=== PATIENT | female | born 1995 | race Caucasian/White ===

== ENCOUNTER 2021-07-06 03:11 | Inpatient (IN) ==
[2021-07-06 04:41] LABS: Appearance Urine Clear (Clear); Bilirubin Urine Negative (Negative); Blood Urine Negative (Negative); Color Urine Yellow; Glucose Urine UA Negative (Negative); Ketones Urine Negative (Negative); Leukocyte Esterase Urine Negative (Negative); Nitrite Urine Negative (Negative); Protein Urine Negative (Negative); Specific Gravity Urine 1.021 (1.000-1.030); Urobilinogen Urine Negative (Negative); pH Urine 5.5 (4.5-7.5)
[2021-07-06 05:03] LABS: Amphetamines+Metham, Urine Neg (Neg); Barbiturates, Urine Neg (Neg); Benzodiazepine, Urine Neg (Neg); Cocaine, Urine Neg (Neg); MDMA (Ecstacy), Urine Neg (Neg); Methadone, Urine Neg (Neg); Opiate, Urine Neg (Neg); Phencyclidine, Urine Neg (Neg)
[2021-07-06 05:05] LABS: Basophils # (auto) 0.03 K/uL (0-0.2); Basophils % (auto) 0.3 %; Eosinophils # (auto) 0.15 K/uL (0-0.5); Eosinophils % (auto) 1.6 %; Hematocrit (blood only) 38.4 % (37-47); Hemoglobin 12.8 g/dL (12.0-16.0); Immature Granulocytes # (auto) 0.01 K/uL (0.00-0.02); Immature Granulocytes % (auto) 0.1 %; Lymphocytes # (auto) 2.67 K/uL (1.2-3.4); Mean Corpuscular Hemoglobin 30.5 pg (25-34); Mean Corpuscular Hgb Conc 33.3 g/dL (32-36); Mean Corpuscular Volume 91.6 fL (80-100); Mean Platelet Volume 9.4 fL (7.4-10.4); Monocytes # (auto) 0.74 K/uL (0.11-0.59); Monocytes % (auto) 7.8 %; Neutrophils # (auto) 5.94 K/uL (1.4-6.5); Neutrophils % (auto) 62.2 %; Platelet Count 271 K/uL (130-400); RDW Coefficient of Variation 12.2 % (11.5-14.5); RDW Standard Deviation 40.9 fL (36.4-46.3); Red Blood Count 4.19 M/uL (4.2-5.4); White Blood Count 9.54 K/uL (4.8-10.8)
[2021-07-06 05:29] LABS: Alanine Aminotransferase 27 U/L (12-78); Albumin Level 3.3 gm/dl (3.4-5.0); Aspartate Aminotransferase 24 U/L (15-37); BUN Creatinine Ratio 11.9 (10-20); Blood Urea Nitrogen 9 mg/dl (7-18); Calcium 8.8 mg/dl (8.5-10.1); Carbon Dioxide 27 mmol/L (21-32); Chloride 109 mmol/L (98-107); Creatinine Clr Calc Pharmacy 90.7 ml/min; Est GFR (African American) 128.4 ml/min; Est GFR (Non-African American) 110.8 ml/min; Glucose 109 mg/dl (70-99); Magnesium 2.1 mg/dl (1.8-2.4); Potassium 3.4 mmol/L (3.5-5.1); Sodium 139 mmol/L (136-145)
[2021-07-06 05:40] LABS: Albumin Globulin Ratio 1.1 (0.9-2); Alkaline Phosphatase 66 U/L (45-117); Total Protein 6.3 gm/dl (6.4-8.2); Troponin I < 0.015 ng/ml (0-0.045)
[2021-07-06 06:34] LABS: Pregnancy Test, Serum Negative (Negative)
[2021-07-06 07:02] LABS: Creatine Kinase 181 U/L (26-192)
--- NOTE | 2021-07-06 07:37 | CT Scan Report ---
CT OF THE HEAD WITHOUT CONTRAST CLINICAL HISTORY: Altered mental status. COMPARISON STUDY: No previous studies for comparison. CT DOSE: 537.48 mGy.cm TECHNIQUE: Helical axial images of the head were obtained without IV contrast. Automated exposure con trol was utilized for the study. A dose lowering technique was utilized adhering to the principles o f ALARA. FINDINGS: No acute intracranial hemorrhage, midline shift or mass effect is present. The ventricular system is unremarkable. The basal cisterns are patent. No extra-axial collections are present. There are no findings to suggest acute dural sinus thrombosis or acute territorial infarct. No significant calvarial abnormalities are present. Visualized portions of the sinuses and mastoid air cells are [place] ar. IMPRESSION: No acute intracranial findings. ACT 112: Negative or not required by law. Electronically signed by: Han Christie M.D. 07/06/2021 7:36 AM
--- NOTE | 2021-07-06 08:16 | XRay Report ---
XR chest 1V portable CLINICAL HISTORY: weakness COMPARISON STUDY: No previous studies for comparison. FINDINGS: Lung volumes are normal. Lungs are clear. There is no pneumothorax or pleural effusion. Car diac size is normal. Mediastinal contours are normal. There is no evidence for pulmonary edema. IMPRESSION: No acute cardiopulmonary findings. ACT 112: Negative or not required by law. Electronically signed by: Han Christie M.D. 07/06/2021 8:14 AM
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
--- NOTE | 2021-07-06 13:53 | Electrocardiogram Report ---
Test Reason : Blood Pressure : / mmHG Vent. Rate : 077 BPM Atrial Rate : 077 BPM P-R Int : 188 ms QRS Dur : 110 ms QT Int : 416 ms P-R-T Axes : 078 072 035 degrees QTc Int : 470 ms Normal sinus rhythm with sinus arrhythmia Incomplete right bundle branch block Borderline ECG No previous ECGs available Confirmed by Edgard Jimenez ([id number]) on 07/06/2021 1:52:55 PM Referred By: REFERRED SELF Confirmed By:Edgard Jimenez
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
--- NOTE | 2021-07-07 13:53 | Hospitalist Progress Note ---
Date of Service July 07, 2021 Assessment & Plan (1) Global amnesia: Plan: Pleasantly alert, awake and oriented in emergency room Cannot remember anything before being brought to the emergency room Strongly believes that somebody raised her memory Relevant blood test, tox screen, CT scans have been unremarkable Will ask for psychiatric and neurology evaluation Remains stable without any acute distress No acute confusion no further information obtained from the patient Has unspecified psychosis Appreciate psychiatric input and recommendation for psychiatric inpatient care She is medically cleared to go to the psych floor (2) Acute metabolic encephalopathy: Plan: No history of drug abuse No infection noted The cause of encephalopathy remains unknown at this time As above Appreciate neurology input and recommendation Plan: She will be transferred to psych floor as soon as possible Admission and Anticipated Discharge Date Admission Date: July 06, 2021 Subjective 07/07/2021 The patient was seen and examined in medical floor She denies any symptoms and did not want to talk about any further information about herself She is medically stable to be transferred to psychiatric floor Review of Systems Review of Systems: Unobtainable due to mental health condition Physical Exam Physical Exam: Sitting on the bed without any acute distress Constitutional: average body habitus; not ill appearing Eyes: PERRL, conjunctivae normal, anicteric sclerae ENMT: external ear and nose normal, oropharynx normal Neck: trachea midline, no thyromegaly Respiratory: no respiratory distress and no cough Auscultation: lungs clear to auscultation bilaterally Cardiovascular: Rate/Rhythm: regular rate and regular rhythm; not tachycardic Heart Sounds: normal S1 and normal S2; no murmur Extremities: no edema Gastrointestinal (Abdomen): Inspection/Auscultation: normal bowel sounds; abdomen not distended Percussion/Palpation: abdomen soft; abdomen nontender Musculoskeletal: No acute arthritis in any joint Neurologic: Alert, awake . No focal sensory and motor deficit appreciated Results & Data Results & Data ([facility]) Vital Signs (Past 12 Hours) Vital Signs Temp Pulse Resp BP Pulse Ox 07/07/21 07:40 36.7 C 74 16 106/68 98
--- NOTE | 2021-07-07 14:07 | Discharge Summary ---
Date of Service July 07, 2021 Admission HPI Per Admitting Provider She is a 25-year-old female without significant past medical history was brought in by police from a nearby [employer]. She called the police and asked for help because she thought that she needs some help but does not remember from which sheets in [place] she was brought into the emergency room. There is nobody in the ER who is aware about her situation in the emergency room. She has been telling that she has lost memory recently but no definite dateline. She lives in [place] but does not know the names of her parents, does not have a cell phone for herself and does not remember any other phone numbers of her parents or friends or any family members. She mentioned that she has been in [facility] but does not know how and when she ended up in [place]. She does not have any visual symptoms or any auditory symptoms of hallucination. She strongly believes that somebody erased her memory and she cannot remember anything. She does not take any medications and does not use any drugs. Denies any pain, nausea vomiting, shortness of breath or palpitation and does not have any problem with urine and bowel habit. Relevant investigations including CBC PRP, EKG chest x-ray and CT scan remained unremarkable. She was admitted under observation and she will be consulted from psychiatrist and also neurologist. Admission Exam Per Admitting Provider Physical Exam: Sitting on the bed without any acute distress Constitutional: average body habitus; not ill appearing Eyes: PERRL, conjunctivae normal, anicteric sclerae ENMT: external ear and nose normal, oropharynx normal Neck: trachea midline, no thyromegaly Respiratory: no respiratory distress and no cough Auscultation: lungs clear to auscultation bilaterally Cardiovascular: Rate/Rhythm: regular rate and regular rhythm; not tachycardic Heart Sounds: normal S1 and normal S2; no murmur Extremities: no edema Gastrointestinal (Abdomen): Inspection/Auscultation: normal bowel sounds; abdomen not distended Percussion/Palpation: abdomen soft; abdomen nontender Musculoskeletal: No acute arthritis in any joint Neurologic: Alert, awake and oriented x3, no focal sensory and motor deficit appreciated. 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, global amnesia Discharge Exam Constitutional average body habitus; not ill appearing Eyes PERRL, conjunctivae normal, anicteric sclerae ENMT external ear and nose normal, oropharynx normal Neck trachea midline, no thyromegaly Respiratory no respiratory distress and no cough Auscultation: lungs clear to auscultation bilaterally Cardiovascular Rate/Rhythm: regular rate and regular rhythm; not tachycardic Heart Sounds: normal S1 and normal S2; no murmur Extremities: no edema Gastrointestinal (Abdomen) Inspection/Auscultation: normal bowel sounds; abdomen not distended Percussion/Palpation: abdomen soft; abdomen nontender Discharge Data Consultations 07/06/21 07:12 ED Decision to Admit Stat 07/06/21 09:23 Consult Neurology Routine Consult Psychiatry Stat Ordered Studies 07/06/21 04:19 CT head/brain wo con Urgent Hospital Course (1) Global amnesia: Pleasantly alert, awake and oriented in emergency room Cannot remember anything before being brought to the emergency room Strongly believes that somebody raised her memory Relevant blood test, tox screen, CT scans have been unremarkable Will ask for psychiatric and neurology evaluation Remains stable without any acute distress No acute confusion no further information obtained from the patient Has unspecified psychosis Appreciate psychiatric input and recommendation for psychiatric inpatient care She is medically cleared to go to the psych floor (2) Acute metabolic encephalopathy: No history of drug abuse No infection noted The cause of encephalopathy remains unknown at this time As above Appreciate neurology input and recommendation-does not think it neurological and no further testing is indicated She will be transferred to psych floor as soon as possible Total Time Total Time Spent Total Time Spent (In Minutes): 35 minutes Discharge Plan Discharge Items Patient Disposition: Transfer Behavioral Health Fac Reason For Visit: LOSS OF MEMORY, ACUTE Discharge Diagnosis: Unspecified psychosis not due to a substance or known psychological condition, global amnesia Condition on Discharge: Fair Activity: Resume your previous activity Non-emergency contact: Primary Care Provider Call non-emergency contact if: you have any medication questions and your symptoms worsen Follow-up/Referrals: PCP,NO [Primary Care Provider] - Diet: Regular Addtl Attending Provider Instructions: Medically stable to be transferred to psych floor Pending Studies at Discharge: No Stand-Alone Forms: [facility] Skilled Items DNR: No Lines: None Urinary Catheter: No Medications and DC Order Discharge Orders: Discharge Order (Routine); Ordered 07/07/21 Ordered By: Letty Velazquez Admission Data Admit Date/Time: 07/06/21 09:00 Attending Provider: Letty Velazquez Admit Provider: Letty Velazquez Primary Care Provider: PCP,NO Other Providers: Durga Simon ; Adelia Lyon ; Anjana Enriquez ; Michelle Kam ; Percy Ashley ; Michoacano Tyson
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
[2021-07-07] MEDS ORDERED: SODIUM CHLORIDE 0.65% NA SOLN 45 ML (OCEAN) PRN (16:03)
[2021-07-07] MEDS ORDERED: ACETAMINOPHEN 325 MG TAB PO PRN (16:03)
[2021-07-07] MEDS ORDERED: MAGNESIUM HYDROXIDE SUSP 30 ML UDC PO PRN (16:03)
[2021-07-07] MEDS ORDERED: hydrOXYzine HCl 25 MG TAB PO PRN ×2 (16:03)
[2021-07-07] MEDS ORDERED: ALUMINUM/MAGNESIUM SUSP 30 ML UDC PO PRN (16:03)
[2021-07-07] MEDS ORDERED: BISMUTH SUBSALICYLATE LIQD 236 ML PO PRN (16:03)
[2021-07-07] MEDS ORDERED: PATIENT'S ALLERGY INFO NEEDS ENTERED SCH (16:30)
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
[2021-07-08 08:36] LABS: Marijuana Quant, GCMS Urine 44 ng/mL (<5)
== END 2021-07-07 17:37 | DRG 947 ==
LOC: 3N 03:11 → ED 03:11 → 3N 13:32 → 3S 13:32

== ENCOUNTER 2021-07-07 14:09 | Inpatient (IN) ==
[2021-07-07] MEDS ORDERED: hydrOXYzine HCl 25 MG TAB PO PRN ×2 (14:35)
[2021-07-07] MEDS ORDERED: ALUMINUM/MAGNESIUM SUSP 30 ML UDC PO PRN (14:35)
[2021-07-07] MEDS ORDERED: MAGNESIUM HYDROXIDE SUSP 30 ML UDC PO PRN (14:35)
[2021-07-07] MEDS ORDERED: SODIUM CHLORIDE 0.65% NA SOLN 45 ML (OCEAN) PRN (14:35)
[2021-07-07] MEDS ORDERED: ACETAMINOPHEN 325 MG TAB PO PRN (14:35)
[2021-07-07] MEDS ORDERED: BISMUTH SUBSALICYLATE LIQD 236 ML PO PRN (14:35)
[2021-07-08] MEDS ORDERED: OLANZapine 10 MG TAB PO PRN (09:30)
[2021-07-08] MEDS ORDERED: OLANZapine 10 MG/2.1 ML SDV IM PRN (09:30)
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
[2021-07-08] MEDS ORDERED: LORazepam 1 MG TAB PO PRN (16:27)
[2021-07-08] MEDS: OLANZapine 5 MG TABLET PO SCH (21:28)
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
[2021-07-09] MEDS: OLANZapine 5 MG TABLET PO SCH (21:20)
--- NOTE | 2021-07-10 19:00 | Psychiatric Progress Note ---
Date of Service July 10, 2021 Impression / Recommendations Impression The patient is a 25 year old woman with a history of BPAD and trauma who was admitted for paranoid ideation, delusions and disorganized behavior now on 303 status. Diagnostically her presentation is consistent with acute demond d/t BPAD. She presents with multiple classic symptoms of acute demond-labile mood, grandiose delusions, psychomotor activation, irritability, increase in goal directed activities (writing pages of ideas about delusions) and paranoid ideation and decreased sleep. She requires inpatient level of care due to threat to others due to acute disorganized/bizarre behavior that interferes with ADLs due to their psychiatric condition causing major disability in social, interpersonal, occupational and/or educational functioning that requires help for safety and stabilization, medication management, establishment of outpatient supports and therapeutic milieu. She continues to demonstrate symptoms of demond though her behavior has been appropriate and she continues to be focused on processing her childhood trauma. --303 status granted 07/09/21 --MNPR due to psychiatric condition with irritability, labile mood and potential for aggression (1) Bipolar 1 disorder with moderate demond: 07/10/21--She had improved sleep within the last 24 hours, even without medication, and has remained behaviorally appropriate though at times can be intrusive with peers and remains highly goal-driven to write about past trauma. Memories have been returning and she is now considering the possibility of reaching out to her sister who she thinks she may be able to live with temporarily. Continue to offer olanzapine though she is refusing medications. Discussed using yoga,meditation and journaling, which she prefers to pharmacological treatments, as a way to help process her trauma. 07/09/21--Now on 303 status. Refusing olanzapine or any other medications and today behavior is appropriate but if this changes will move toward medication over objection given acute manic episode. AIMS score=0. 07/08/21--Converted to 302 status after meeting with her for admission intake. She is becoming increasingly agitated and irritable. Continues to refuse me dication but will offer olanzapine 5 mg qhs for acute demond. Unable to discuss risks, benefits or get consent due to her level of agitation from acute demond. Will attempt to get fasting lipid panel and glucose as well AIMS once she is able to tolerate exam and bloodwork. 07/07/21--The patient was admitted to the [facility] (locked inpatient mental health unit) on q15 min checks (behavioral with suicide precautions) for safety. The patient will participate in group, recreational, and milieu therapies and will be offered additional individual and family sessions as clinically appropriate. Risk Factors Assessment Do You Have Access To A Gun?: No Interval History Identifying Information 25 yo woman with history of BPAD and extensive childhood trauma who was admitted for symptoms of psychosis with paranoia, delusions and disorganized behavior concerning for demond. Chief Complaint "I'm realizing all the connections between my famiy's trauma". Review of Systems Sleep Information Total Hours of Sleep: 2 Sleep Comments: pt on q-15 minute checks Meal Information Percent Meal Consumed - Breakfast: 100 Percent Meal Consumed - Lunch: 100 Percent Meal Consumed - Dinner: 100 Subjective Subjective Patient was seen & assessed and interval progress reviewed with treatment team,nursing and social work. Only two hours of sleep last night but then slept most of the morning until lunch. Intrusive last night with a peer and some bizarre behavior but no agitation and required no prn medication. Today she reports having had to restart her work writing about her trauma because she's realized new connections. She remains adamant that she does not want medication. She has been getting more memories and would like to try to contact her sister who she thinks she may be able to stay with after she leaves the hospital. She continues to feel that significant childhood trauma is coming back to her and that multiple family members "brainwashed" them all into forgetting it. Notes that psychiatric medications were used during her childhood as a way to repress her from learning about the trauma. Discussed her goals of finding a safe place to go after the hospital as she feels the hospital triggers more trauma and feels she's had enough time to process her trauma. Physical Exam Psychiatric Orientation: alert and oriented x 3 Apperance: appropriately dressed Eye Contact: good eye contact Motor Behavior: steady gait and station and no abnormal motor movements Speech: + pressured speech Affect: + anxious affect Mood: + anxious mood Thought Process: + tangential thought process Thought Content: + preoccupation and + delusions Suicidal Thoughts: denies suicidal thoughts Homicidal Thoughts: denies homicidal thoughts Hallucinations: no auditory hallucinations and no visual hallucinations Cognition: remote memory grossly intact and language grossly intact; + attention not intact Estimated Intelligence: consistent with education level Insight: + limited insight Judgement: + fair judgement Vital Signs (Past 24 Hours) Last Vital Signs Temp 36.7 C 07/10/21 06:00 Pulse 80 07/10/21 06:55 Resp 16 07/10/21 06:00 BP 111/71 07/10/21 06:55 Pulse Ox 100 07/07/21 17:45 Results & Data ([facility]) Current Inpatient Medications Current Inpatient Medications: Current Inpatient Medications Acetaminophen (Acetaminophen 325 Mg Tab) 650 mg PO Q4H PRN PRN Reason: Headache or Minor Fever Stop: 08/06/21 14:34 Al Hydrox/Mg Hydrox/Simethicone (Aluminum/Magnesium Susp 30 Ml Udc) 30 ml PO Q4H PRN PRN Reason: GI Upset Stop: 08/06/21 14:34 Bismuth Subsalicylate (Bismuth Subsalicylate Liqd 236 Ml) 15 ml PO PRN PRN PRN Reason: Loose Stool Stop: 08/06/21 14:34 Hydroxyzine HCl (Hydroxyzine Hcl 25 Mg Tab) 50 mg PO HSZ PRN PRN Reason: Insomnia Stop: 08/06/21 14:34 Hydroxyzine HCl (Hydroxyzine Hcl 25 Mg Tab) 25 mg PO Q4H PRN PRN Reason: Anxiety Stop: 08/06/21 14:34 Lorazepam (Lorazepam 1 Mg Tab) 1 mg PO BID PRN PRN Reason: Agitation Stop: 08/07/21 16:26 Magnesium Hydroxide (Magnesium Hydroxide Susp 30 Ml Udc) 30 ml PO DAILY PRN PRN Reason: Constipation Stop: 08/06/21 14:34 Olanzapine (Olanzapine 10 Mg Tab) 10 mg PO DAILY PRN PRN Reason: Agitation Stop: 08/07/21 09:29 Olanzapine (Olanzapine 10 Mg/2.1 Ml Sdv) 10 mg IM DAILY PRN PRN Reason: Agitation Stop: 08/07/21 09:44 Olanzapine (Olanzapine 5 Mg Tablet) 5 mg PO HS ARTI Stop: 08/07/21 21:59 Last Admin: 07/09/21 21:20 Dose: Not Given Documented by: Sodium Chloride (Sodium Chloride 0.65% Na Soln 45 Ml ([place])) 1 - 2 sprays NA PRN PRN PRN Reason: Nasal Dryness/Congestion Stop: 08/06/21 14:34
[2021-07-10] MEDS: OLANZapine 5 MG TABLET PO SCH (20:47)
--- NOTE | 2021-07-11 17:14 | Psychiatric Progress Note ---
Date of Service July 11, 2021 Impression / Recommendations Impression The patient is a 25 year old woman with a history of BPAD and trauma who was admitted for paranoid ideation, delusions and disorganized behavior now on 303 status. Diagnostically her presentation is consistent with acute demond d/t BPAD vs severe trauma with re-experiencing. She has remained in good behavioral control over the last two days and has not required any IM medications. She feels she has been able to cope with and process her trauma and is eager to discharge now that she has regained her memories. She continues to demonstrate symptoms of demond vs trauma. Her behavior has been appropriate and she is future-oriented with a focus on appropriate goals and tasks. --303 status granted 07/09/21 --MNPR due to psychiatric condition with recent trauma and potential for mood lability (1) Bipolar 1 disorder with moderate demond: 07/11/21--She's continued to have appropriate behaviors and not required any emergency medications. She feels she's been able to process her trauma and continues to feel that medication would not be helpful. 07/10/21--She had improved sleep within the last 24 hours, even without medication, and has remained behaviorally appropriate though at times can be intrusive with peers and remains highly goal-driven to write about past trauma. Memories have been returning and she is now considering the possibility of reaching out to her sister who she thinks she may be able to live with temporarily. Continue to offer olanzapine though she is refusing medications. Discussed using yoga,meditation and journaling, which she prefers to pharmacological treatments, as a way to help process her trauma. 07/09/21--Now on 303 status. Refusing olanzapine or any other medications and today behavior is appropriate but if this changes will move toward medication over objection given acute manic episode. AIMS score=0. 07/08/21--Converted to 302 status after meeting with her for admission intake. She is becoming increasingly agitated and irritable. Continues to refuse medication but will offer olanzapine 5 mg qhs for acute demond. Unable to discuss risks, benefits or get consent due to her level of agitation from acute demond. Will attempt to get fasting lipid panel and glucose as well AIMS once she is able to tolerate exam and bloodwork. 07/07/21--The patient was [facility] ([facility]) on q15 min checks (behavioral with suicide precautions) for safety. The patient will participate in group, recreational, and milieu therapies and will be offered additional individual and family sessions as clinically appropriate. Risk Factors Assessment Do You Have Access To A Gun?: No Interval History Identifying Information 25 yo woman with history of BPAD and extensive childhood trauma who was admitted for symptoms of psychosis with paranoia, delusions and disorganized behavior concerning for demond. Chief Complaint "I feel ready to go". Review of Systems Sleep Information Total Hours of Sleep: 4.75 Sleep Comments: pt on q-15 minute checks Meal Information Percent Meal Consumed - Breakfast: 100 Percent Meal Consumed - Lunch: 100 Percent Meal Consumed - Dinner: 100 Subjective Subjective Patient was seen & assessed and interval progress reviewed with treatment team nursing and social work. She has remained in good behavioral control with no irritability toward staff, no inappropriate behaviors and behavior has been organized. She is eager for discharge as she would like to start working on getting her [place] license and finding paperwork she lost while in [place] such as requesting a new SS card, etc. She reached out to her sister and spoke with some other family members but she would prefer to stay in a temporary fci given that being around her family brings back trauma memories and she does not want to be around them if they are using substances. She reports positive mood. She remains uninterested in any medications. She denies SI, HI, AH and VH. She would like to set up her own PCP follow-up, as she doesn't plan to stay in [place] long-term. She declined offers for additional resources for therapy or medication management. Physical Exam Psychiatric Orientation: alert and oriented x 3 Apperance: appropriately dressed Eye Contact: good eye contact Motor Behavior: steady gait and station and no abnormal motor movements Speech: normal rate/rhythm/volume of speech (speech still slightly rapid) Affect: euthymic affect Mood: no depressed mood and no anxious mood Thought Process: goal directed thought process Thought Content: reality based without delusions Suicidal Thoughts: denies suicidal thoughts Homicidal Thoughts: denies homicidal thoughts Hallucinations: no auditory hallucinations and no visual hallucinations Cognition: recent memory grossly intact, remote memory grossly intact, attention grossly intact and language grossly intact Estimated Intelligence: consistent with education level Insight: + limited insight Judgement: + fair judgement Vital Signs (Past 24 Hours) Last Vital Signs Temp 35.8 C L 07/10/21 20:35 Pulse 80 07/10/21 06:55 Resp 16 07/10/21 06:00 BP 111/71 07/10/21 06:55 Pulse Ox 100 07/07/21 17:45 Results & Data ([facility]) Current Inpatient Medications Current Inpatient Medications: Current Inpatient Medications Acetaminophen (Acetaminophen 325 Mg Tab) 650 mg PO Q4H PRN PRN Reason: Headache or Minor Fever Stop: 08/06/21 14:34 Al Hydrox/Mg Hydrox/Simethicone (Aluminum/Magnesium Susp 30 Ml Udc) 30 ml PO Q4H PRN PRN Reason: GI Upset Stop: 08/06/21 14:34 Bismuth Subsalicylate (Bismuth Subsalicylate Liqd 236 Ml) 15 ml PO PRN PRN PRN Reason: Loose Stool Stop: 08/06/21 14:34 Hydroxyzine HCl (Hydroxyzine Hcl 25 Mg Tab) 50 mg PO HSZ PRN PRN Reason: Insomnia Stop: 08/06/21 14:34 Hydroxyzine HCl (Hydroxyzine Hcl 25 Mg Tab) 25 mg PO Q4H PRN PRN Reason: Anxiety Stop: 08/06/21 14:34 Lorazepam (Lorazepam 1 Mg Tab) 1 mg PO BID PRN PRN Reason: Agitation Stop: 08/07/21 16:26 Magnesium Hydroxide (Magnesium Hydroxide Susp 30 Ml Udc) 30 ml PO DAILY PRN PRN Reason: Constipation Stop: 08/06/21 14:34 Olanzapine (Olanzapine 10 Mg Tab) 10 mg PO DAILY PRN PRN Reason: Agitation Stop: 08/07/21 09:29 Olanzapine (Olanzapine 10 Mg/2.1 Ml Sdv) 10 mg IM DAILY PRN PRN Reason: Agitation Stop: 08/07/21 09:44 Olanzapine (Olanzapine 5 Mg Tablet) 5 mg PO HS ARTI Stop: 08/07/21 21:59 Last Admin: 07/10/21 20:47 Dose: Not Given Documented by: Sodium Chloride (Sodium Chloride 0.65% Na Soln 45 Ml ([place])) 1 - 2 sprays NA PRN PRN PRN Reason: Nasal Dryness/Congestion Stop: 08/06/21 14:34 Mental Health & Subst Abuse Tx Psychiatrist Name of Psychiatrist: None Therapist Name of Therapist: None Fruit Picker Name of Fruit Picker: None Post Discharge Appointments Primary Care Physician Name Of Family Doctor: None Contact Information Discharge Discharge Address: [address] [place] [address] [place] ( [place]) Contact Information Comment: ENRIQUE directions and info provided
[2021-07-11] MEDS: OLANZapine 5 MG TABLET PO SCH (21:06)
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
== END 2021-07-12 08:55 | disposition home or self-care (01) | DRG 885 ==
LOC: 3S 17:38
DX: F43.10 Post-traumatic stress disorder, unspecified; Z59.02 Unsheltered homelessness; F17.210 Nicotine dependence, cigarettes, uncomplicated; F31.12 Bipolar disorder, current episode manic without psychotic features, moderate